=== PATIENT | female | born 1940 | race Caucasian/White ===

== ENCOUNTER 2017-10-21 11:00 | Outpatient (RCR) | payer MEDICARE, SELFPAY ==
--- NOTE | 2017-09-23 14:50 | HP.PTDCSUM ---
HP - PT D/C Summary It has been my pleasure to treat LUIS ENRIQUE BOBBY under orders from NOEMY BUCKLEY, for the diagnosis of Left hip pain for a total of 1 visit(s). Discharge Date: Please see the following information for a summary of their discharge status. - Goals Goal 1:: Patient will be I with HEP Goal 2:: Patient will ambulate >300 feet with a normalized gait pattern Goal 3:: Patient will maintain proper posture t/o tc to demo increased scap s/s Goal 4:: Patient will report /10 pain - Plan Plan: Focus on LE strength and core s/s - D/C Information If there are questions or concerns regarding this patient's physical therapy, please feel free to call me at [phone]. Thank you for the referral of this patient. Sincerely, Angela Toussaint
--- NOTE | 2017-09-23 16:21 | HP.PTEVAL_ITS ---
Patient's Visit Information LUIS ENRIQUE BOBBY is a 76 year old F referred to Physical Therapy by NOEMY BUCKLEY with a diagnosis of Left hip pain. Date of Evaluation: 09/23/17 Physical Therapist: Angela Toussaint - Visit Plan Frequency: 2x /Week Duration: 3 Weeks Plan: Focus on LE strength and core s/s - Subjective Subjective: February 2014 she had a L4-5 fusion and felt 150%. Last November she thought she had nerve damage- by Apr thought she was fine had 3 good months then she started having pain in the hip. Went to [facility] had an injection (in the buttocks) that worked for about 5 weeks and little by little it started up again. 2 weeks ago- she was watering and she tripped and landed on the ground and bounced- crawled to the tree and got herself up. Nothing bothered her and she went to the [employer]- walked did fine- was walking down the bleachers and felt like she was getting weaker up/down. The next day the pain started in her buttocks in the left. Wednesday she was [facility] who sent her to the MD. She had x-rays. Pain is located in the buttock- radiates into the pubic area and to the greater troch. Describes the pain as sharp/shooting. Aches down the legs to the ankle on the left. No N/T. Worst: 8/10 Agg: walking- sometimes after she walks it feels better. Best: 0/10 Eases: sitting and supine, Tylenol. Sleep: not disturbed. Pain goes away immediatly when she sits down. Does not wear orthotics in her shoes. PMHx: Lumbar Fusion, HTN, hysterectomy, right ankle fracture Meds: amlodapene, hydrochlorothizide, potassium - Objective Posture: FH, RS, Increased kyphosis- unable to correct even given verbal cues. Standing: poor- unable to maintain upright position. Gait: antalgic- decreased stephanie- reports pain when asked to stand straight. HRTR: able but reports pain in the greater troch on the left with HR. Balance: requires UE A for SLS. Sensation/Reflex: WNL in LE. ROM: WNL in all planes- no pain. Strength: Ankle: 5/5, Knee: 4+/5, hip: 4-/5 throughout Core: poor. Special Test: Dural signs: negative on right positive on the left, Slump: negative, SLR: positive on the left. Palpation: tender along gluts on the left. Flex: hs: mild, gastroc: mild. Stairs: asc/desc 8 recip with 2 HR- UE A - Goals Goal 1:: Patient will be I with HEP Goal Time Frame: 4-6 Weeks Goal 2:: Patient will ambulate >300 feet with a normalized gait pattern Goal Time Frame: 4-6 Weeks Goal 3:: Patient will maintain proper posture t/o tc to demo increased scap s/s Goal Time Frame: 4-6 Weeks Goal 4:: Patient will report 2/10 pain Goal Time Frame: 4-6 Weeks - Rehabilitation Potential Rehabilitation Potential: Fair - Anticipated Interventions Patient/Client Instruction: Educate patient on: Benefits of Fitness Program For the Purpose of:: To improve performance and independence with ADL's Therapeutic Exercise to Include: Strength training, Endurance training, Balance training, Body mechanics, Postural training, Flexibilty training, Gait and locomotor training, In an aquatic setting, Dynamic Lumbar Stabilization For the Purpose of:: To improve muscle performance and motor function Thank you for the opportunity to evaluate your patient. For Medicare and Medicare HMO plans, please review the plan of care and approve it. It will need to be FAXED BACK to us at [phone] for Medicare purposes. Please let me know if there are questions or concerns regarding this plan of care. Physician Signature: Date:
--- NOTE | 2017-10-21 11:39 | HP.PTDCSUM ---
HP - PT D/C Summary It has been my pleasure to treat LUIS ENRIQUE BOBBY under orders from NOEMY BUCKLEY, for the diagnosis of Left hip pain for a total of 8 visit(s). Discharge Date: Please see the following information for a summary of their discharge status. - Subjective Subjective: Patient reports that she is really happy with her progress- she is back to doing all of her normal activities with only a 1/10 pain. She does not feel that she needs to continue therapy- she did not love water therapy but does feel it made her better. She plans to continue exercises at [employer] 4-5 days a week. - Pain L hip Pain Intensity (Out of 10): 3 - Overall Improvement % Improvement: 95 - Objective Objective/Function: Posture: FH, RS, Increased kyphosis- able to correct and maintained for approx 5 min in hard back chair. Standing: poor- good able to maintain upright position. Gait: good posture and normal stephanie. HRTR: able and reports no pain Balance: single leg stance on the left: 10 seconds with right LE touching the ankle of the left. Sensation/Reflex: WNL in LE. ROM: WNL in all planes- no pain. Strength: Ankle: 5/5, Knee: 5/5, hip: 4+/5 throughout Core: fair plus. Special Test: Dural signs: negative bilateral, Slump: negative, SLR: negative no pain. Palpation: tender to touch to gluts with deep palpation. Flex: hs: mild, gastroc: mild. Stairs: asc/desc 8 recip with 1 HR for balance-did not use for progression. - Goals Goal 1:: Patient will be I with HEP Goal Progress: Goal Met Goal 2:: Patient will ambulate >300 feet with a normalized gait pattern Goal Progress: Goal Met Goal 3:: Patient will maintain proper posture t/o tc to demo increased scap s/s Goal Progress: Goal Met Goal 4:: Patient will report 2/10 pain Goal Progress: Goal Met - Plan Plan: At this time patient is appropriate for d/c she has met all goals and is I with HEP and will continue with health and wellness. Educated to ask questions if needed while in the gym. - D/C Information If there are questions or concerns regarding this patient's physical therapy, please feel free to call me at [phone]. Thank you for the referral of this patient. Sincerely, Angela Toussaint
== END 2017-10-21 15:15 | disposition home or self-care (01) ==
LOC: PT 11:00
PROVIDERS: Family Provider Family Medicine; PCP Family Medicine
DX: M25.552 Pain in left hip (principal)
CPT/HCPCS: 97113; 97162; 97164

== ENCOUNTER → 2021-01-24 07:44 | Outpatient (CLI) | payer MEDICARE, SELFPAY ==
--- NOTE | 2021-01-24 07:44 | MRI_ITS ---
STUDY: MRI LUMBAR SPINE WITHOUT CONTRAST REASON FOR EXAM: Female, 80 years old. pain lasting longer than 6 weeks TECHNIQUE: Standardized fat and water weighted pulse sequences were obtained in the sagittal and axial planes. COMPARISON: X-ray 01/08/2021 FINDINGS: T12-L1: Normal endplates. Normal disc height, hydration and morphology. Normal bilateral facet joints. Normal central canal and bilateral lateral recesses. Normal bilateral intervertebral neural foramina. Normal lumbar lordosis. There is no substantial scoliosis. Normal conus medullaris that terminates at the L2. L1-2: Normal endplates. Normal disc height, hydration and morphology. Normal bilateral facet joints. Normal central canal and bilateral lateral recesses. Normal bilateral intervertebral neural foramina. L2-3: Mild bilateral facet hypertrophy and moderate ligament flavum hypertrophy. Moderate bilobed disc protrusion produces moderate spinal stenosis and moderate bilateral neural foraminal stenosis. L3-4: Severe bilateral facet hypertrophy and ligament flavum hypertrophy. 2 mm of anterolisthesis of L3 on L4 with a moderate broad disc protrusion produces severe spinal stenosis and severe bilateral neural foraminal stenosis with effacement of the L3 nerve roots bilaterally. L4-5: Status post posterior decompression and transpedicular fixation with 2 mm of anterolisthesis of L4 on L5 with no spinal stenosis or neural foraminal stenosis. L5-S1: Mild bilateral facet hypertrophy and ligament flavum hypertrophy. Mild broad disc protrusion produces mild spinal stenosis and mild bilateral neural foraminal stenosis. Normal visualized sacral ala. Normal visualized paraspinous soft tissue structures. MRI/Spine Lumbar (Routine) IMPRESSION: Status post transpedicular fixation at L4/L5 with degenerative disc disease at L2/L3 and L3/L4 as described above. Electronically Signed: Reggie Peres MD at 10:54 EST Tel , Service support ,
== END ==
PROVIDERS: PCP Family Medicine; Referring Provider Orthopaedic Surgery; Visit Provider Orthopaedic Surgery
DX: M54.16 Radiculopathy, lumbar region (principal)
CPT/HCPCS: 72148

== ENCOUNTER 2021-04-03 10:00 | Outpatient (RCR) | payer MEDICARE, SELFPAY ==
--- NOTE | 2021-03-25 13:24 | HP.PTEVAL_ITS ---
Patient's Visit Information LUIS ENRIQUE BOBBY is a 80 year old F referred to Physical Therapy by Dr. Chastity Plummer MD with a diagnosis of LBP and R LE radiculopathy. Date of Evaluation: 03/25/21 Physical Therapist: Bairon Silva, PT, ATC - Visit Plan Frequency: 1x/Week Duration: 2 Weeks Plan: Issue and instruct pt on HEP of core strengthening in nuetral spine and LE strengthening nex visit - Subjective Pt reports she has a 20+ year history of LBP. Pt notes she had surgery 5 years ago which was very beneficial for 2 of the years. Pt notes she has had xrays and an MRI which revealed OA, DDD, and other degenerative changes. Pt notes she had an injection one month ago which probably did help her a little, but she notes she still has pain. Pt reports sitting and then attempting to stand upright is very painful. Pt reports walking is helpful at decreasing her pain. Pt reports she has pain in her R glute and LE region which is controlled by meds at this time. No sleep difficulty secondary to pain. 5/10 pain while sitting her in the clinic, 8/10 pain at worst. - Pain LBP Pain Intensity (Out of 10): 5 Pain Intensity Range: 8 - Objective Neuro: B LE sensation is WNL to light touch. B patellar reflex= 2/3. MMT: B LE's are grossly 4-/5 throughout. ROM: Pt is moderately limited in ext. Minimally limited with flex. repeated movements: REIL peripheralized sx's in R LE. RFIL increased central LBP - Balance/Special Test Scores Oswestry Low Back Score: 20 - Goals Goal 1:: I with HEP after 1-2 visits Goal Time Frame: 2 Weeks - Rehabilitation Potential Physical Therapy Diagnosis: Pt has LBP, B LE weakness, and limited L/S rom secondary to DDD of the L/S Rehabilitation Potential: Good - Anticipated Interventions Patient/Client Instruction: Educate patient on: Condition, Plan of Care For the Purpose of:: To improve self management Therapeutic Exercise to Include: Strength training, Endurance training, Active ROM, Dynamic Lumbar Stabilization For the Purpose of:: To decrease pain, To increase ROM, To improve muscle performance and motor function Cryotherapy (ice pack, ice massage): Yes For the Purpose of:: To decrease pain Thank you for the opportunity to evaluate your patient. For Medicare and Medicare HMO plans, please review the plan of care and approve it. It will need to be FAXED BACK to us at [phone] for Medicare purposes. For Medicare only, by signing this I certify the plan of care. Please let me know if there are questions or concerns regarding this plan of care. Physician Signature: Da te:
--- NOTE | 2021-08-22 13:13 | HP.PT.NRP ---
LUIS ENRIQUE BOBBY was seen in my office for initial evaluation on 03/25/21. The following Plan of Care was established for this patient: Initial Frequency: 1x/Week Initial Duration: 2 Weeks Patient/Client Instruction: Educate patient on: Condition, Plan of Care For the Purpose of:: To improve self management Therapeutic Exercise to Include: Strength training, Endurance training, Active ROM, Dynamic Lumbar Stabilization For the Purpose of:: To decrease pain, To increase ROM, To improve muscle performance and motor function Cryotherapy (ice pack, ice massage): Yes For the Purpose of:: To decrease pain This patient was last seen in our office . Pertinent comments regarding their Physical therapy will appear below: Pt was treated for 3 PT visits for LBP through the date of 04/03/21. Pt has not returned through todays date and is discontinued at this time At this point I will be discontinuing this patient from physical therapy. I would be happy to see this patient again in the future if found appropriate by the physician. Thank you! Bairon Silva, PT, ATC Balance/Gait/Functional tests - Balance/Special Test Scores Oswestry Low Back Score: 20
== END 2021-04-03 19:00 | disposition home or self-care (01) ==
LOC: PT 10:00
PROVIDERS: PCP Family Medicine; Referring Provider Anesthesiology Pain Medicine; Visit Provider Anesthesiology Pain Medicine
DX: M54.9 Dorsalgia, unspecified (principal); M79.606 Pain in leg, unspecified
CPT/HCPCS: 97110; 97161

== ENCOUNTER 2021-06-17 16:43 | Outpatient (CLI) | payer MEDICARE, SELFPAY ==
--- NOTE | 2021-06-17 16:53 | CT_ITS ---
STUDY: CT RIGHT ANKLE WITHOUT CONTRAST REASON FOR EXAM: Female, 80 years old. ANKLE ARTHRITIS RADIATION DOSAGE (If Supplied By Facility): CTDIvol = ( 15.35 ) mGy, DLP = ( 393.36 ) mGycm TECHNIQUE: Thin section transaxial imaging of the ankle was obtained, with sagittal and coronal reconstructed images. Individualized dose optimization techniques were used for this CT. COMPARISON: Comparison is made with prior radiographs of the right ankle dated 11/16/2014. FINDINGS: The patient is status post open reduction internal fixation of the distal fibula with screw and sideplate fixation device. The distal fibular fracture is healed. Patient is status post screw fixation of the posterior malleolar fracture. The fracture is healed. There is evidence of a mild degree of degenerative changes of the distal tibial talar joint. Small plantar spur. Normal subtalar, talonavicular and calcaneocuboid articulations. Normal navicular-cuneiform, cuneiform tarsal bones and intercuneiform articulations. Normal tarsometatarsal articulations and visualized metatarsi. Mild degree of soft tissue swelling in the subcutaneous tissues overlying the posterior aspect of the ankle. CT/Extremity Lower without Contra IMPRESSION: Status post open reduction and internal fixation of the distal fibular fracture and posterior malleolar fracture of the distal tibia. The fractures are healed. The joint changes of the distal tibial talar joint. Electronically Signed: Gianfranco Aguirre MD at 14:04 EDT ,
== END 2021-06-17 23:59 | disposition home or self-care (01) ==
PROVIDERS: PCP Family Medicine; Referring Provider Podiatrist; Visit Provider Podiatrist
DX: M12.571 Traumatic arthropathy, right ankle and foot (principal)
CPT/HCPCS: 73700

== ENCOUNTER → 2021-12-05 | Outpatient (CLI) | payer MEDICARE, SELFPAY ==
--- NOTE | 2021-12-05 14:18 | VDLE_ITS ---
Reason For Study: swelling and pain RIGHT LEFT GSV is normal. GSV is normal. CFV is compressible, spontaneous, phasic, CFV is compressible, spontaneous, phasic, competent and demonstrates normal competent, and demonstrates normal augmentation. augmentation. FV is compressible, spontaneous, phasic, FV is compressible, spontaneous, phasic, competent and demonstrates normal competent and demonstrates normal augmentation. augmentation. POP V is compressible, spontaneous, phasic, POP V is compressible, spontaneous, phasic, competent and demonstrates normal competent and demonstrates normal augmentation. augmentation. T/P Trunk is compressible. T/P Trunk is compressible. PTV is compressible. PTV is compressible. RT PerV is compressible. LT PerV is compressible. Procedure This is a venous duplex using B-mode, color flow and spectral Doppler. Exam performed in department. The exam was diagnostic. The study was technically difficult. Difficulty tolerating probe pressure. A preliminary report was called and/or faxed to Dr. Salazar @ [phone] @ 2:50 pm. VL/Venous Duplex US - Matt Extrem Interpretation Summary Deep veins of the lower extremities are bilaterally patent and compressible seg mentally. There is no evidence of deep vein thrombosis on either side. Valvular competence appears in tact within the proximal deep venous systems bilaterally. The great saphenous veins appear bila terally patent and compressible segmentally. Ordering Physician: Kwesi Salazar Referring Physician: Phil Stewart Performed By: Jing Gomez, TANVICS, RVT
== END | disposition home or self-care (01) ==
LOC: CVS 13:49
PROVIDERS: PCP Family Medicine; Referring Provider Podiatrist; Visit Provider Podiatrist
DX: M79.89 Other specified soft tissue disorders (principal); I82.409 Acute embolism and thrombosis of unspecified deep veins of unspecified lower extremity
CPT/HCPCS: 93970